=== PATIENT | female | born 1985 | race Caucasian/White ===

== ENCOUNTER 2022-09-29 15:23 | Emergency (ER) | payer BC, OTHER ==
[2022-09-29] MEDS ORDERED: KETOROLAC 15 MG/ML 1 ML VIAL IVP STA (17:27)
[2022-09-29] MEDS ORDERED: KETOROLAC 15 MG/ML 1 ML VIAL IM STA (17:28)
--- NOTE | 2022-09-29 17:35 | ED ---
Back Pain HPI - General Chief Complaint: Back Pain/Injury Stated Complaint: Back Pain Time Seen by Provider: 09/29/22 16:37 Source: patient Limitations: no limitations - History of Present Illness Initial Comments: 37-year-old female who reports history of "back problems". Presents to the ED with a chief complaint of back pain. She states 2 days ago reached into a cooler and twisted her back "weird". Since then she reports persisting lower back pain. Denies dysuria or hematuria. Denies incontinence or saddle anesthesia. That due to this she has been having intermittent difficulty walking. Denies weakness. Chest pain or shortness of breath. No other complaints. - Related Data Home Medications Medication Instructions Recorded Confirmed Escitalopram [Lexapro] 10 mg PO DAILY 01/19/16 01/19/16 Previous Rx's Medication Instructions Recorded Ofloxacin 0.3% Ophth Soln [Ocuflox 1 - 2 drops BOTH EYES QID 7 Days 01/19/16 Ophth Soln] ml Cephalexin [Keflex] 500 mg PO Q6HR 5 Days #20 cap 09/29/22 Lidocaine 5% Patch [Lidoderm 5% 1 patch TOPICAL DAILY #7 patch 09/29/22 Patch] methocarbamoL [Robaxin] 1,000 mg PO QID 2 Days #8 tab 09/29/22 Allergies Allergy/AdvReac Type Severity Reaction Status Date / Time No Known Allergies Allergy Verified 01/19/16 15:38 Review of Systems ROS Statement: Those systems with pertinent positive or pertinent negative responses have been documented in the HPI. ROS Other: All systems not noted in ROS Statement are negative. Past Medical History Past Medical History: No Reported History History of Any Multi-Drug Resistant Organisms: None Reported Past Surgical History: Section, Orthopedic Surgery Additional Past Surgical History / Comment(s): left knee surgery Past Psychological History: Anxiety Smoking Status: Current every day smoker Past Alcohol Use History: Occasional Past Drug Use History: None Reported General Exam Limitations: no limitations General appearance: alert, in no apparent distress Head exam: Present: atraumatic, normocephalic Eye exam: Present: normal appearance Neck exam: Present: other (No midline cervical spinal tenderness to palpation) Respiratory exam: Present: wheezes (Diffuse wheezing bilaterally) Cardiovascular Exam: Present: regular rate, normal rhythm GI/Abdominal exam: Present: soft (No CVA tenderness to palpation bilaterally) Rectal exam: Present: deferred Extremities exam: Present: other (Strength and sensation equal and symmetric in bilateral upper and lower extremities) Back exam: Present: other (No midline thoracic or lumbar spinal tenderness to palpation. Reproducible Paraspinal lumbar tenderness to palpation bilaterally. ) Neurological exam: Present: alert, oriented X3, CN II-XII intact Psychiatric exam: Present: normal affect, normal mood Skin exam: Present: warm, dry Course Vital Signs 09/29/22 09/29/22 15:26 19:59 Temperature 98.0 F 98.4 F Pulse Rate 98 69 Respiratory 18 16 Rate Blood Pressure 167/103 145/93 O2 Sat by Pulse 98 99 Oximetry Medical Decision Making - Medical Decision Making Was pt. sent in by a medical professional or institution (, PA, BETTING AGENCY MANAGER, urgent care, hospital, or retirement...) When possible be specific @ -No Did you speak to anyone other than the patient for history (EMS, parent, family, police, friend...)? What history was obtained from this source @ -No Did you review nursing and triage notes (agree or disagree)? Why? @ -I reviewed and agree with nursing and triage notes Were old charts reviewed (outside hosp., previous admission, EMS record, old EKG, old radiological studies, urgent care reports/EKG's, retirement records)? Report findings @ -No old charts were reviewed Differential Diagnosis (chest pain, altered mental status, abdominal pain women, abdominal pain men, vaginal bleeding, weakness, fever, dyspnea, syncope, headache, dizziness, GI bleed, back pain, seizure, CVA, palpatations, mental health, musculoskeletal)? @ -Differential Back Pain: Strain, zoster, cauda equina syndrome, epidural abscess, vertebral osteomyelitis, discitis, fracture, subluxation, disc herniation, DJD, spinal stenosis, dissection, AAA, pancreatitis, peptic ulcer disease, pyelonephritis, kidney stone, this is not meant to be an all-inclusive list. EKG interpreted by me (3pts min.). @ -None X-rays interpreted by me (1pt min.). @ -Lumbar x-rays showed degenerative changes at L4 to L5 however no acute findings. CT interpreted by me (1pt min.). @ -None done U/S interpreted by me (1pt. min.). @ -None done What testing was considered but not performed or refused? (CT, X-rays, U/S, labs)? Why? @ -None What meds were considered but not given or refused? Why? @ -None Did you discuss the management of the patient with other professionals (professionals i.e. , PA, BETTING AGENCY MANAGER, lab, RT, psych nurse, social research assistant, custom stock maker, teacher, investigation officer, pillowcase sewer)? Give summary @ -No Was smoking cessation discussed for >3mins.? @ -No Was critical care preformed (if so, how long)? @ -No Were there social determinants of health that impacted care today? How? (Homelessness, low income, unemployed, alcoholism, drug addiction, transportation, low edu. Level, literacy, decrease access to med. care, group home, rehab)? @ -No Was there de-escalation of care discussed even if they declined (Discuss DNR or withdrawal of care, Hospice)? DNR status @ -No What co-morbidities impacted this encounter? (DM, HTN, Smoking, COPD, CAD, Cancer, CVA, ARF, Chemo, Hep., AIDS, mental health diagnosis, sleep apnea, morbid obesity)? @ -None Was patient admitted / discharged? Hospital course, mention meds given and route, prescriptions, significant lab abnormalities, going to OR and other pertinent info. @ -Discharged. Patient provided Toradol and Tylenol with improvement of pain. UA did show findings concerning for UTI however patient reports no symptoms of dysuria and no flank pain on CVA percussion no concern of pyelo at this time. She will be discharged home with Keflex, Robaxin, and lidocaine patches and provided referral for orthopedics. Discussed return precautions patient verbalized understanding and agreement. Undiagnosed new problem with uncertain prognosis? @ -No Drug Therapy requiring intensive monitoring for toxicity (Heparin, Nitro, Insulin, Cardizem)? @ -No Were any procedures done? @ -No Diagnosis/symptom? @ -Back pain, muscle strain Acute, or Chronic, or Acute on Chronic? @ -Acute Uncomplicated (without systemic symptoms) or Complicated (systemic symptoms)? @ -Uncomplicated Side effects of treatment? @ -No Exacerbation, Progression, or Severe Exacerbation? @ -No Poses a threat to life or bodily function? How? (Chest pain, [place], [place], pneumonia, PE, COPD, DKA, ARF, appy, cholecystitis, CVA, Diverticulitis, Homicidal, Suicidal, threat to staff... and all critical care pts) @ -No - Lab Data Lab Results 09/29/22 Range/Units 18:26 Urine Color Yellow Urine Appearance Cloudy H (Clear) Urine pH 6.0 (5.0-8.0) Ur Specific [place] 1.012 (1.001-1.035) Urine Protein Negative (Negative) Urine Glucose (UA) Negative (Negative) Urine Ketones Negative (Negative) Urine Blood Small H (Negative) Urine Nitrite Negative (Negative) Urine Bilirubin Negative (Negative) Urine Urobilinogen <2.0 (<2.0) mg/dL Ur Leukocyte Esterase Large H (Negative) Urine RBC 8 H (0-5) /hpf Urine WBC 9 H (0-5) /hpf Ur Squamous Epith Cells 10 H (0-4) /hpf Urine Bacteria Many H (None) /hpf Urine Mucus Rare H (None) /hpf Disposition Clinical Impression: Back pain Disposition: HOME SELF-CARE Instructions (If sedation given, give patient instructions): Urinary Tract Infection in Women (ED), Acute Low Back Pain (ED) Additional Instructions: Please return to the Emergency Department if symptoms worsen or any other concerns. Prescriptions: Cephalexin [Keflex] 500 mg PO Q6HR 5 Days #20 cap Lidocaine 5% Patch [Lidoderm 5% Patch] 1 patch TOPICAL DAILY #7 patch methocarbamoL [Robaxin] 1,000 mg PO QID 2 Days #8 tab Is patient prescribed a controlled substance at d/c from ED?: No Referrals: None,Stated [Primary Care Provider] - 1-2 days Issac Shipman DO [Doctor of Osteopathic Medicine] - 1-2 days Time of Disposition: 19:50
--- NOTE | 2022-09-29 18:53 | XR ---
EXAMINATION TYPE: XR lumbar spine 2 or 3V DATE OF EXAM: 09/29/2022 Comparison: None Clinical History: 37-year-old female low back pain s/p twisting 2 days ago Findings: 5 lumbar type vertebral bodies. Vertebral body heights are preserved. Mild disc space narrowing L4-L5 . Small superior endplate Schmorl's node L5. Alignment is maintained. Impression: Mild degenerative disc disease L4-L5. No vertebral compression collapse or malalignment.
[2022-09-29 19:40] LABS: Appearance,Urine Cloudy (Clear); Bacteria,Urine Many /hpf; Bilirubin,Urine Negative (Negative); Blood,Urine Small (Negative); Color,Urine Yellow; Glucose,Urine (UA) Negative (Negative); Ketones,Urine Negative (Negative); Leukocyte Esterase,Urine Large (Negative); Mucus,Urine Rare /hpf; Nitrite,Urine Negative (Negative); Protein,Urine Negative (Negative); RBC,Urine 8 /hpf (0-5); Specific Gravity,Urine 1.012 (1.001-1.035); Squamous Epithelial Cell,Urine 10 /hpf (0-4); Urobilinogen,Urine <2.0 mg/dL (<2.0); WBC,Urine 9 /hpf (0-5)
[2022-09-29 20:01] VITALS: BP 145/93; PULSE 69; RESP 16; TEMP 98.4
[2022-09-29] MEDS: ACETAMINOPHEN TAB 500 MG TAB PO STA ×2 (20:05→20:21)
== END 2022-09-29 20:22 | disposition home or self-care (01) ==
LOC: EC 15:23
DX: S39.012A Strain of muscle, fascia and tendon of lower back, initial encounter (principal); F17.200 Nicotine dependence, unspecified, uncomplicated; F41.9 Anxiety disorder, unspecified; Z79.899 Other long term (current) drug therapy; X50.1XXA Overexertion from prolonged static or awkward postures, initial encounter
CPT/HCPCS: 81001; 72100; 99284; 96372; J1885

== ENCOUNTER → 2022-10-22 | Outpatient (CLI) | payer OTHER ==
--- NOTE | 2022-10-22 19:06 | MR ---
EXAMINATION TYPE: MR lumbar spine wo con DATE OF EXAM: 10/22/2022 COMPARISON: Radiograph 10/19/2022 HISTORY: 37-year-old female Low back pain into both sides TECHNIQUE: Multiplanar, multisequence images of the lumbar spine were acquired without IV contrast. FINDINGS: Vertebral body heights are preserved and alignment is maintained. No suspicious bone marrow replacement. There is edematous Modic type I endplate changes especially towards the right L4-L5 and associated mi ld degenerative disc disease here with desiccated and mild diffuse bulging disc. Bulging disc here at L4-L5 impresses on the ventral thecal sac but does not contribute any significan t spinal canal stenosis. Conus medullaris is normal. No significant neuroforaminal stenosis. No prevertebral or paravertebral soft tissue abnormality. IMPRESSION: Mild degenerative disc disease at L4-L5 with associated edematous Modic type I endplate change. Diffu se disc bulge here mildly impresses on to the ventral thecal sac but does not contribute to any signi ficant spinal canal or neuroforaminal stenosis.
== END | disposition home or self-care (01) ==
LOC: RADMRIMAIN 13:08
PROVIDERS: ATTEND Nurse Practitioner Family
DX: M51.16 Intervertebral disc disorders with radiculopathy, lumbar region (principal); M47.26 Other spondylosis with radiculopathy, lumbar region
CPT/HCPCS: 72148